=== PATIENT | male | born 1965 | race Caucasian/White ===

== ENCOUNTER 2016-05-28 11:26 | Emergency (ER) | payer MEDICARE, OTHER | END 2016-05-28 11:30 | disposition home or self-care (01) | LOC: ER 11:26 | DX: S39.92XA Unspecified injury of lower back, initial encounter (principal); F17.200 Nicotine dependence, unspecified, uncomplicated; W01.0XXA Fall on same level from slipping, tripping and stumbling without subsequent striking against object, initial encounter | CPT/HCPCS: 72100; 96372; 99284; A9270-GY; J2360 ==